=== PATIENT | male | born 1935 ===

== ENCOUNTER 2018-07-13 07:00 | Day surgery (SDC) | payer MEDICARE, OTHER ==
[2018-07-04 11:18] VITALS: BMI 27.8
[2018-07-13] MEDS ORDERED: Lactated Ringer's 1,000 ML IV ONE (09:30)
[2018-07-13] MEDS ORDERED: Midazolam 2 MG/2 ML VIAL ONE ×2 (09:31→09:56)
[2018-07-13] MEDS ORDERED: Lidocaine 1% Inj (20ml) IJ ONE (09:37)
[2018-07-13] MEDS ORDERED: MethylPREDNISolone Depo 40 mg/ml Inj IM ONE (09:37)
[2018-07-13] MEDS ORDERED: Bupivacaine HCl 0.25% PF (30 ml) Inj IJ ONE (09:37)
[2018-07-13] MEDS ORDERED: Propofol 10 mg/ml Inj (20 ML) ONE (09:56)
[2018-07-13] MEDS ORDERED: Iohexol 300 10 ML ONE (10:17)
[2018-07-13] MEDS ORDERED: MethylPREDNISolone Depo 40 mg/ml Inj ONE (10:17)
[2018-07-13] MEDS ORDERED: Lidocaine 1% Inj (20ml) ONE (10:18)
[2018-07-13] MEDS ORDERED: Bupivacaine 0.5% Inj(30mL) ONE (10:18)
[2018-07-13 11:52] VITALS: RESP 18; O2SAT 95
[2018-07-13 12:29] VITALS: BP 157/67; PULSE 59; TEMP 97.5
--- NOTE | 2018-07-13 13:13 | RAD ---
Date of service: 07/13/2018 PROCEDURE: Fluoroscopy up to 1 hr. HISTORY: PAIN MANAGEMENT COMPARISON: None TECHNIQUE: Standard protocol for this study/examination. FINDINGS: Total fluoroscopic time (continuous mode) utilized during the procedure 24.2 seconds. Total exam DLP: 9.05 (mGy). IMPRESSION: Less than 1 hr fluoroscopic assistance provided during performance of the procedure.
--- NOTE | 2018-07-13 22:57 | OP ---
PROCEDURE DATE: 07/13/2018 PREOPERATIVE DIAGNOSIS: Lumbar radiculopathy. POSTOPERATIVE DIAGNOSIS: Lumbar radiculopathy. PROCEDURE: Right L4-L5 and L5-S1 transforaminal epidural steroid injection. SURGEON: Fabio Sanchez MD TYPE OF ANESTHESIA: Monitored anesthesia care. ANESTHESIOLOGIST: Dr. Banerjee. COMPLICATIONS: None. SPECIMEN: None. DESCRIPTION OF PROCEDURE: As follows: After we had a discussion of the procedure with the patient including its risks, benefits, alternatives, outcome data, and possibility of no effect or increased pain, the patient consented to the procedure. He denied any recent infection or bleeding tendencies. Decision was then made to proceed to the OR. The patient had been instructed to start the Plavix for 7 days which he has done. This was cleared by his primary care physician. The patient was placed on the fluoroscopy table in a prone position with two pillows underneath his abdomen. The back was prepped and draped in the usual sterile fashion and sterile technique was adhered to during the entire procedure. The L4 and L5 vertebral levels were first identified in the anteroposterior view. Angulation towards the right approximately 20 degrees was used to maximize the visualization of the right L4 and L5 pedicles. The skin overlying the 6 o'clock position of both pedicles was infiltrated with 1% lidocaine using 25-gauge needle. Subsequently, a 22-gauge 3.5 inch spinal needle was then incrementally advanced under fluoroscopic guidance until tip of the needle walked into the intervertebral foramen. After satisfactory positioning of both needles, approximately 3 mL of 0.25% Marcaine and Depo-Medrol mixture were injected. The needle was then removed. Contrast was not used because the patient has allergies. At the end of the case, the patient's back was cleaned and dry bandages were applied. The patient was then transferred to recovery area in good condition without any signs of [employer] toxicity or any neurological deficits. He will be instructed to resume Plavix tomorrow. The patient will have a followup in office in approximately two to four weeks. Fabio Sanchez MD
== END 2018-07-13 12:25 | disposition home or self-care (01) ==
LOC: H.OPSURG 07:00
PROVIDERS: ATTEND Anesthesiology
DX: M54.16 Radiculopathy, lumbar region (principal); M19.90 Unspecified osteoarthritis, unspecified site; J45.909 Unspecified asthma, uncomplicated; I10 Essential (primary) hypertension
CPT/HCPCS: 64483; 64484; J1030; J2250; J2704; J3010; J7120

== ENCOUNTER 2018-09-23 11:11 | Inpatient (IN) | payer MEDICARE, OTHER ==
[2018-09-23 11:11] VITALS: BMI 27.8
[2018-09-23] MEDS ORDERED: Morphine 4 MG/ML VIAL IVP STA ×2 (11:53→18:34)
[2018-09-23] MEDS ORDERED: Morphine 4 MG/ML VIAL ONE ×2 (12:10→19:23)
[2018-09-23] MEDS ORDERED: DiphenhydrAMINE 50 mg/ml Inj IVP STA (12:23)
[2018-09-23] MEDS ORDERED: Iohexol 240 (50 ml) PO ONE (12:24)
--- NOTE | 2018-09-23 12:26 | RAD ---
Date of service: 09/23/2018 HISTORY: possible admission COMPARISON: Chest radiograph dated 04/25/2014. FINDINGS: LUNGS: No active pulmonary disease. PLEURA: No significant pleural effusion identified, no pneumothorax apparent. CARDIOVASCULAR: Aortic atherosclerotic calcifications. Cardiomediastinal silhouette stably enlarged. OSSEOUS STRUCTURES: Unchanged. VISUALIZED UPPER ABDOMEN: Normal. OTHER FINDINGS: None. IMPRESSION: No active disease.
[2018-09-23] MEDS ORDERED: DiphenhydrAMINE 50 mg/ml Inj ONE (12:32)
[2018-09-23] MEDS ORDERED: Iohexol 240 (50 ml) ONE (12:40)
[2018-09-23 12:53] LABS: BASO % 0.3 % (0.0-2.0); EOS # 0.1 K/uL (0.0-0.7); EOS % 0.5 % (0.0-4.0); HEMOGLOBIN 15.4 g/dL (12.0-18.0); LYMPH # 1.1 K/uL (1.0-4.3); LYMPH % 9.6 % (20.0-40.0); MEAN CORPUSCULAR HEMOGLOBIN 31.7 pg (27.0-31.0); MEAN CORPUSCULAR HGB CONC 32.1 g/dL (33.0-37.0); MEAN PLATELET VOLUME 10.8 fl (7.2-11.7); MONO # 1.2 K/uL (0.0-0.8); MONO % 10.3 % (0.0-10.0); NEUT # 9.1 K/uL (1.8-7.0); NEUT % 79.3 % (50.0-75.0); NRBC % 0.1 % (0.0-0.0); PLATELET COUNT 158 K/uL (130-400); RBC 4.85 Mil/uL (4.40-5.90); RED CELL DISTRIBUTION WIDTH 14.2 % (11.5-14.5); WHITE BLOOD COUNT 11.5 K/uL (4.8-10.8)
[2018-09-23 12:55] LABS: PROTHROMBIN TIME 11.7 Seconds (9.8-13.1)
[2018-09-23 12:57] LABS: PARTIAL THROMBOPLASTIN TIME 27.9 Seconds (25.6-37.1)
[2018-09-23 13:00] LABS: ALB/GLOB RATIO 1.3 (1.0-2.1); ALBUMIN 4.2 g/dL (3.5-5.0); ALT/SGPT 22 U/L (21-72); AST/SGOT 26 U/L (17-59); BLOOD UREA NITROGEN 15 mg/dl (9-20); CALCIUM 9.4 mg/dL (8.4-10.2); GFR NON-AFRICAN AMERICAN > 60; LIPASE 33 U/L (23-300)
[2018-09-23 14:41] LABS: BANDS 2 % (0-2); LYMPHOCYTE 5 % (20-50); MONOCYTE 8 % (0-10); NEUTROPHIL 85 % (42-75); TOTAL CELLS COUNTED 100
[2018-09-23 14:42] LABS: PLATELET ESTIMATE NORMAL (NORMAL)
--- NOTE | 2018-09-23 15:16 | ED PDOC ---
HPI: Abdomen Time Seen by Provider: 09/23/18 11:21 Chief Complaint (Nursing): Abdominal Pain Chief Complaint (Provider): abdominal pain History Per: Patient History/Exam Limitations: no limitations Onset/Duration Of Symptoms: Days (x1 week) Current Symptoms Are (Timing): Still Present Associated Symptoms: Diarrhea Additional Complaint(s): Chalo Long is a 82 year old male, with a past medical history of HTN, large prostate and CAD, who presents to the emergency department complaining of a worsening severe abdominal pain onset for x1 week associated with diarrhea. Patient has been taking Maalox and since then stool has become darker and noticed blood in stool. Patient states since last night abdominal pain became severe and worst across lower abdomen. He is unable to tolerate PO and has not had a normal bowel movement in several days. Patient states he's had x3 previous abdominal hernia repairs which were all performed at this hospital. He reports an allergy to Iodine x20 years ago stating he developed a rash. When discussed risk vs benefits of IV contrast, patient wants contrast so imaging doesn't have to be repeated. Patient told he will be given Benadryl for possible allergic reaction. He denies any fever, chills, nausea, vomiting or other medical complaints. PMD: Milo Dowell Past Medical History Reviewed: Historical Data, Nursing Documentation, Vital Signs Vital Signs: Last Vital Signs Temp 97.9 F 09/23/18 11:13 Pulse 99 H 09/23/18 11:13 Resp 18 09/23/18 11:13 BP 133/84 09/23/18 11:13 Pulse Ox 96 09/23/18 11:13 - Medical History PMH: Arthritis (arms,legs), Asthma, CAD, COPD, HTN Denies: Chronic Kidney Disease Other PMH: large prostate - Surgical History Surgical History: Hernia Repair - Family History Family History: States: Unknown Family Hx - Social History Current smoker - smoking cessation education provided: No Alcohol: None Drugs: Denies - Home Medications Home Medications: Ambulatory Orders Medication Instructions Recorded Albuterol Sulfate [Proair 90 mcg PO DAILY 03/28/17 Respiclick] Clopidogrel [Plavix] 75 mg PO DAILY 03/28/17 Desloratadine [Clarinex] 5 mg PO DAILY PRN 03/28/17 Fluticasone/Salmeterol 500/50 1 puff PO DAILY PRN 03/28/17 [Advair Diskus 500/50] Montelukast [Singulair] 10 mg PO PRN PRN 03/28/17 RX: Fluticasone Nasal [Flonase] 1 spray OD DAILY 03/28/17 RX: Tamsulosin HCl [Flomax] 0.4 mg PO DAILY 03/28/17 RX: Tramadol HCl [Ultram] 50 mg PO Q4 PRN 03/28/17 Irbesartan [Avapro] 75 mg PO DAILY 07/13/18 - Allergies Allergies/Adverse Reactions: Allergies Allergy/AdvReac Type Severity Reaction Status Date / Time aspirin Allergy Intermediate RASH Verified 09/23/18 11:48 iodine AdvReac RASH Verified 09/23/18 11:48 Review of Systems ROS Statement: Except As Marked, All Systems Reviewed And Found Negative Constitutional: Negative for: Fever, Chills Gastrointestinal: Positive for: Abdominal Pain, Diarrhea, Melena, Hematochezia. Negative for: Nausea, Vomiting Physical Exam - Reviewed Nursing Documentation Reviewed: Yes Vital Signs Reviewed: Yes - Physical Exam Appears: Positive for: No Acute Distress Head Exam: Positive for: ATRAUMATIC, NORMAL INSPECTION, NORMOCEPHALIC Skin: Positive for: Normal Color, Warm, Dry Eye Exam: Positive for: Normal appearance, EOMI, PERRL Neck: Positive for: Normal, Painless ROM Cardiovascular/Chest: Positive for: Regular Rate, Rhythm. Negative for: Murmur Respiratory: Positive for: Normal Breath Sounds. Negative for: Respiratory Distress Gastrointestinal/Abdominal: Positive for: Tenderness (diffuse), Distended, Guarding Back: Positive for: Normal Inspection. Negative for: L CVA Tenderness, R CVA Tenderness, Vertebral Tenderness Extremity: Positive for: Normal ROM (upper and lower extremities). Negative for: Deformity, Swelling Neurologic/Psych: Positive for: Alert, Oriented - Laboratory Results Result Diagrams: 09/24/18 06:32 09/24/18 06:32 Lab Results: PT 11.7 Seconds (9.8-13.1) 09/23/18 12:04 INR 1.0 09/23/18 12:04 APTT 27.9 Seconds (25.6-37.1) 09/23/18 12:04 Total Bilirubin 0.9 mg/dl (0.2-1.3) 09/23/18 12:04 AST 26 U/L (17-59) 09/23/18 12:04 ALT 22 U/L (21-72) 09/23/18 12:04 Alkaline Phosphatase 88 U/L (38-126) 09/23/18 12:04 Total Protein 7.6 G/DL (6.3-8.2) 09/23/18 12:04 Albumin 4.2 g/dL (3.5-5.0) 09/23/18 12:04 Globulin 3.3 gm/dL (2.2-3.9) 09/23/18 12:04 Albumin/Globulin Ratio 1.3 (1.0-2.1) 09/23/18 12:04 Lipase 33 U/L (23-300) 09/23/18 12:04 - ECG O2 Sat by Pulse Oximetry: 96 (RA) Pulse Ox Interpretation: Normal Medical Decision Making Medical Decision Making: Time: 11:21 Initial Impression: Work up for abdominal pain. Possible obstruction secondary to previous abdominal surgeries. Patient is on monitor with normal vitals Initial Plan: --Type and screen --Abd pelvis PO & IV Contrast [CT] --CMP --Lipase --CBC w/ differential --PTT --PT --Chest portable [RAD] --Benadryl 50 mg IVP --Morphine 2mg IVP --Omnipaque 240 50 ml PO --SOLU-medrol 125 mg IVP --Influenza A B --Occult blood, stool, ER --UA --Reevaluation 12:23 CXR FINDINGS: LUNGS: No active pulmonary disease. PLEURA: No significant pleural effusion identified, no pneumothorax apparent. CARDIOVASCULAR: Aortic atherosclerotic calcifications. Cardiomediastinal silhouette stably enlarged. OSSEOUS STRUCTURES: Unchanged. VISUALIZED UPPER ABDOMEN: Normal. OTHER FINDINGS: None. IMPRESSION: No active disease. 16:14 CT Abdomen and Pelvis FINDINGS: LOWER THORAX: Cardiomegaly. Coronary arterial and valvular calcifications. Bibasilar atelectasis/scarring. No focal consolidation or pleural effusion. LIVER: Unremarkable. No gross lesion or ductal dilatation. GALLBLADDER AND BILE DUCTS: Unremarkable. PANCREAS: Unremarkable. No gross lesion or ductal dilatation. SPLEEN: Unremarkable. ADRENALS: Unremarkable. No mass. KIDNEYS AND URETERS: Bilateral renal cysts, the largest on the right is in the lower pole measures 6.9 x 4.2 cm and the largest on the left is in the interpolar region and measures 4.1 by 3.7 cm. No hydronephrosis. No solid mass. VASCULATURE: Unremarkable. No aortic aneurysm. No aortic atherosclerotic calcification or mural plaque present. BOWEL: Wall thickening and pericolic inflammatory change involving the rectosigmoid no no obstruction. No gross mural thickening. APPENDIX: No findings to suggest acute appendicitis.. PERITONEUM: Small fat containing umbilical hernia. Bilateral left fat containing inguinal hernia. No free fluid. No free air. LYMPH NODES: Unremarkable. No enlarged lymph nodes. BLADDER: Unremarkable. REPRODUCTIVE: Marked prostatomegaly. BONES: Spinal degenerative changes. No acute fracture. OTHER FINDINGS: None. IMPRESSION: Infectious/inflammatory rectosigmoid colitis. Market prostatomegaly. Additional findings as above. Time: 1831 --Case discussed with Dr. Dowell, who agrees with treatment. As per Dr. Dowell's request, will consult Dr. Torres, urology, and Dr. Wisdom, GI, IV fluids and antibiotics. Scribe Attestation: Documented by Sergio Greer, acting as a scribe for Tia Darden MD Provider Scribe Attestation: All medical record entries made by the Scribe were at my direction and personally dictated by me. I have reviewed the chart and agree that the record accurately reflects my personal performance of the history, physical exam, medical decision making, and the department course for this patient. I have also personally directed, reviewed, and agree with the discharge instructions and disposition. Disposition - Clinical Impression Clinical Impression: Colitis, Nephrolithiasis - Patient ED Disposition Is Patient to be Admitted: Yes - Disposition Disposition Time: 18:32 Condition: FAIR
[2018-09-23] MEDS ORDERED: Iohexol 300 100 ML IJ ONE (15:24)
[2018-09-23] MEDS ORDERED: Sodium Chloride 0.9% 50 ML IV ONE (15:25)
[2018-09-23 15:44] LABS: SQUAMOUS EPITHIAL < 1 /hpf (0-5); URINE AMORPHOUS SEDIMENT OCC /ul (<OCC); URINE BACTERIA RARE (<OCC)
[2018-09-23 16:08] LABS: URINE BILIRUBIN SMALL (NEGATIVE); URINE BLOOD TRACE-INTACT (NEGATIVE); URINE CLARITY Clear (Clear); URINE COLOR YELLOW (YELLOW); URINE GLUCOSE (UA) NEGATIVE (NEGATIVE); URINE LEUKOCYTE ESTERASE NEGATIVE Leu/uL (Negative); URINE PROTEIN 100 mg/dL (NEGATIVE); URINE UROBILINOGEN 0.2 mg/dL (0.2-1.0)
--- NOTE | 2018-09-23 16:31 | CT ---
Date of service: 09/23/2018 PROCEDURE: CT Abdomen and Pelvis with contrast HISTORY: rule out obstruction COMPARISON: None. TECHNIQUE: Contrast dose: 70 mL Omnipaque 300 Radiation dose: Total exam DLP = 440.29 mGy-cm. This CT exam was performed using one or more of the following dose reduction techniques: Automated exposure control, adjustment of the mA and/or kV according to patient size, and/or use of iterative reconstruction technique. FINDINGS: LOWER THORAX: Cardiomegaly. Coronary arterial and valvular calcifications. Bibasilar atelectasis/scarring. No focal consolidation or pleural effusion. LIVER: Unremarkable. No gross lesion or ductal dilatation. GALLBLADDER AND BILE DUCTS: Unremarkable. PANCREAS: Unremarkable. No gross lesion or ductal dilatation. SPLEEN: Unremarkable. ADRENALS: Unremarkable. No mass. KIDNEYS AND URETERS: Bilateral renal cysts, the largest on the right is in the lower pole measures 6.9 x 4.2 cm and the largest on the left is in the interpolar region and measures 4.1 by 3.7 cm. No hydronephrosis. No solid mass. VASCULATURE: Unremarkable. No aortic aneurysm. No aortic atherosclerotic calcification or mural plaque present. BOWEL: Wall thickening and pericolic inflammatory change involving the rectosigmoid no no obstruction. No gross mural thickening. APPENDIX: No findings to suggest acute appendicitis.. PERITONEUM: Small fat containing umbilical hernia. Bilateral left fat containing inguinal hernia. No free fluid. No free air. LYMPH NODES: Unremarkable. No enlarged lymph nodes. BLADDER: Unremarkable. REPRODUCTIVE: Marked prostatomegaly. BONES: Spinal degenerative changes. No acute fracture. OTHER FINDINGS: None. IMPRESSION: Infectious/inflammatory rectosigmoid colitis. Market prostatomegaly. Additional findings as above.
[2018-09-23] MEDS ORDERED: Piperacillin/Tazobact 3.375 GM in Sodium Chloride 0.9% 100 ML IVPB STA (18:21)
[2018-09-23] MEDS ORDERED: Sodium Chloride 0.9% 1,000 ML IV STA (18:34)
[2018-09-23] MEDS ORDERED: Piperacillin/Tazobact 3.375 gm Inj IVPB ONE (19:23)
[2018-09-23] MEDS ORDERED: Enoxaparin 40 mg Syringe SC ONE (22:54)
[2018-09-23] MEDS: Dextrose 5%/0.9% NS 1,000 ML IV SCH (23:19)
[2018-09-23] MEDS ORDERED: DESLORATADINE 5 MG PO PRN (23:24)
[2018-09-23] MEDS: Ciprofloxacin 400mg/200ml D5W 400 MG/200 ML BAG IVPB SCH (23:28)
[2018-09-24] MEDS: metroNIDAZOLE 500mg/100ml NS 100 ML IVPB SCH ×3 (01:19→16:56)
[2018-09-24 06:50] LABS: HEMOGLOBIN 13.9 g/dL (12.0-18.0); MEAN CELL VOLUME 98.8 fl (80.0-94.0); MEAN CORPUSCULAR HEMOGLOBIN 32.6 pg (27.0-31.0); RBC 4.25 Mil/uL (4.40-5.90); RED CELL DISTRIBUTION WIDTH 14.2 % (11.5-14.5); WHITE BLOOD COUNT 10.8 K/uL (4.8-10.8)
[2018-09-24 06:57] LABS: ALB/GLOB RATIO 1.2 (1.0-2.1); ALBUMIN 3.5 g/dL (3.5-5.0); ALT/SGPT 28 U/L (21-72); AST/SGOT 20 U/L (17-59); BLOOD UREA NITROGEN 19 mg/dl (9-20); CALCIUM 8.6 mg/dL (8.4-10.2); GFR NON-AFRICAN AMERICAN > 60; HDL CHOLESTEROL 53 MG/DL (30-70)
[2018-09-24 06:58] LABS: LDL CHOLESTEROL 81 mg/dL (0-129)
[2018-09-24 07:04] LABS: T4 7.53 ug/dl (5.5-11.0)
[2018-09-24] MEDS: Budesonide 0.5 mg/2 ml Inhal Susp UD IH SCH ×2 (07:13→19:11)
[2018-09-24] MEDS: Albuterol-Ipratrop 3 mg / 0.5 (3 ml) UD INH SCH ×3 (07:13→19:11)
[2018-09-24] MEDS: Ciprofloxacin 400mg/200ml D5W 400 MG/200 ML BAG IVPB SCH ×2 (10:18→21:15)
--- NOTE | 2018-09-24 15:56 | CP.PCM.HP ---
History of Present Illness - History of Present Illness History of Present Illness: CC: Abdominal pain. 82 y/o M, PMHx: HTN, CAD, COPD, Lumbar Radiculopathy, Abdominal hernia repair x3, O/A, was brought to [facility], via EMS on 09/23/18, to be evaluated for abdominal pain that began 5 days [employer], Pt taking Maalox with no relief. Pt came c/o of abdominal pain to lower quadrants, gradually increased night [employer], described as intermittent pain, moderate to severe intensity 5-7:10, associated to loose-watery stool x the last 5 days but now with Red tinted color. Worsening symptoms: Unable to tolerate PO, no regular BS for several days. Aggravated factor: ADL's, position change. Pt denied: Fever, chills, n/v, urinary symptoms, CP, palpitations, syncope, SOB, cough, sick contact, recent travel out of [facility]. Abd/Pelvis CT: Infectious/inflammatory rectosigmoid colitis. marked Prostatomegaly. CXR: No active disease. 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) - Integumentary Integumentary: Other (negative) - Neurological Neurological: Other (negative) - Psychiatric Psychiatric: Other (negative) - Endocrine Endocrine: Other (negative) - Hematologic/Lymphatic Hematologic: Other (negative) Past Patient History - Past Medical History & Family History Past Medical History?: Yes Pertinent Family History: Unknown - Past Social History Smoking Status: Never Smoked Alcohol: None Drugs: Denies Home Situation {Lives}: With Family - CARDIAC Hx Cardiac Disorders: Yes Hx Hypertension: Yes - PULMONARY Hx Respiratory Disorders: Yes Hx Asthma: Yes Hx Chronic Obstructive Pulmonary Disease (COPD): Yes - NEUROLOGICAL Hx Neurological Disorder: Yes (Lumbar radiculopathy) Hx Transient Ischemic Attacks (TIA): Yes - HEENT Hx HEENT Problems: No - RENAL Hx Chronic Kidney Disease: No - ENDOCRINE/METABOLIC Hx Endocrine Disorders: No - HEMATOLOGICAL/ONCOLOGICAL Hx Blood Disorders: No Hx AIDS: No Hx Blood Transfusions: No Hx Human Immunodeficiency Virus (HIV): No - INTEGUMENTARY Hx Dermatological Problems: No - MUSCULOSKELETAL/RHEUMATOLOGICAL Hx Musculoskeletal Disorders: Yes Hx Arthritis: Yes (arms,legs) Hx Back Pain: Yes Hx Degenerative Joint Disease: Yes (Scoliosis Lumbar-Spine) Hx Herniated Disk: Yes Hx Spinal Stenosis: Yes - GASTROINTESTINAL Hx Gastrointestinal Disorders: No - GENITOURINARY/GYNECOLOGICAL Hx Genitourinary Disorders: Yes Hx Prostate Problems: Yes - PSYCHIATRIC Hx Psychophysiologic Disorder: No Hx Emotional Abuse: No Hx Physical Abuse: No Hx Substance Use: No - SURGICAL HISTORY Hx Surgeries: Yes Hx Cardiac Catheterization: No Hx Herniorrhaphy: Yes (bilateral) - ANESTHESIA Hx Anesthesia: Yes Hx Anesthesia Reactions: No Hx Malignant Hyperthermia: No Meds Allergies/Adverse Reactions: Allergies Allergy/AdvReac Type Severity Reaction Status Date / Time aspirin Allergy Intermediate RASH Verified 09/23/18 11:48 iodine AdvReac RASH Verified 09/23/18 11:48 Physical Exam - Constitutional Appears: No Acute Distress - Head Exam Head Exam: NORMAL INSPECTION - Eye Exam Eye Exam: PERRL - ENT Exam ENT Exam: Normal Exam - Neck Exam Neck exam: Positive for: Normal Inspection - Respiratory Exam Respiratory Exam: NORMAL BREATHING PATTERN - Cardiovascular Exam Cardiovascular Exam: REGULAR RHYTHM - GI/Abdominal Exam GI & Abdominal Exam: Distended, Guarding, Hypoactive Bowel Sounds, Tenderness (diffused) - Extremities Exam Extremities exam: Positive for: normal inspection - Back Exam Back exam: NORMAL INSPECTION - Neurological Exam Neurological exam: Alert, Oriented x3 - Psychiatric Exam Psychiatric exam: Normal Mood - Skin Skin Exam: Normal Color, Warm Results - Vital Signs Recent Vital Signs: Last Vital Signs Temp 98.1 F 09/24/18 09:00 Pulse 66 09/24/18 09:00 Resp 18 09/24/18 09:00 BP 124/73 09/24/18 09:00 Pulse Ox 96 09/24/18 14:43 reviewed Jalyn - Labs Result Diagrams: 09/24/18 06:32 09/24/18 06:32 Labs: Laboratory Results - last 24 hr 09/23/18 09/23/18 09/24/18 08:47 15:10 06:32 WBC 10.8 RBC 4.25 L Hgb 13.9 Hct 42.0 MCV 98.8 H MCH 32.6 H MCHC 33.0 RDW 14.2 Plt Count 152 Sodium Potassium Chloride Carbon Dioxide Anion Gap BUN Creatinine Est GFR ( Amer) Est GFR (Non-Af Amer) Random Glucose Calcium Total Bilirubin AST ALT Alkaline Phosphatase Total Protein Albumin Globulin Albumin/Globulin Ratio Triglycerides Cholesterol LDL Cholesterol Direct HDL Cholesterol Thyroxine (T4) TSH 3rd Generation Urine Color Yellow Urine Clarity Clear Urine pH 7.0 Ur Specific [place] 1.020 Urine Protein 100 Urine Glucose (UA) Negative Urine Ketones 15 Urine Blood Trace-intact Urine Nitrate Negative Urine Bilirubin Small Urine Urobilinogen 0.2 Ur Leukocyte Esterase Negative Urine RBC (Auto) 4 H Urine Microscopic WBC 4 Ur Squamous Epith Cells < 1 Amorphous Sediment Occ H Urine Bacteria Rare Stool Occult Blood Positive H 09/24/18 06:32 WBC RBC Hgb Hct MCV MCH MCHC RDW Plt Count Sodium 137 Potassium 4.5 Chloride 98 Carbon Dioxide 29 Anion Gap 15 BUN 19 Creatinine 0.8 Est GFR ( Amer) > 60 Est GFR (Non-Af Amer) > 60 Random Glucose 134 H Calcium 8.6 Total Bilirubin 0.6 AST 20 ALT 28 Alkaline Phosphatase 66 Total Protein 6.4 Albumin 3.5 Globulin 3.0 Albumin/Globulin Ratio 1.2 Triglycerides 62 Cholesterol 151 LDL Cholesterol Direct 81 HDL Cholesterol 53 Thyroxine (T4) 7.53 TSH 3rd Generation 0.94 Urine Color Urine Clarity Urine pH Ur Specific [place] Urine Protein Urine Glucose (UA) Urine Ketones Urine Blood Urine Nitrate Urine Bilirubin Urine Urobilinogen Ur Leukocyte Esterase Urine RBC (Auto) Urine Microscopic WBC Ur Squamous Epith Cells Amorphous Sediment Urine Bacteria Stool Occult Blood reviewed J.P. - Imaging and Cardiology CT scan - abdomen Status: Report reviewed by me (J.P.) CT scan - pelvis Status: Report reviewed by me (JLibertyP.) Chest x-ray Status: Report reviewed by me (JLibertyP.) Assessment & Plan (1) Abdominal pain Status: Acute Priority: High (2) Colitis Status: Acute Priority: High (3) HTN (hypertension) Status: Chronic Priority: Medium (4) BPH (benign prostatic hyperplasia) Status: Chronic Priority: Medium - Assessment and Plan (Free Text) Plan: F/U EKG, Blood C-S, U C-S, Continue Flagyl, Cipro, Duoneb, Singulair, Flomax and rest of tx. Urology anf GI consult. - Date & Time Date: 09/24/18 Time: 13:30
[2018-09-24] MEDS: Dextrose 5%/0.9% NS 1,000 ML IV SCH ×2 (22:00→23:30)
--- NOTE | 2018-09-24 22:31 | CON ---
DATE: 09/24/2018 REASON FOR CONSULTATION: Diarrhea and colitis. HISTORY OF PRESENT ILLNESS: This is a pleasant 82-year-old male with history of hypertension, benign prostatic hypertrophy, CAD, who comes in for diarrhea, abdominal pain for the past week or so. The patient is actually doing better, has some nausea and vomiting which has improved, diarrhea has improved. No blood in the stool. , tolerating diet, lying in bed comfortably, in no apparent distress. PAST MEDICAL HISTORY: As above. PAST SURGICAL HISTORY: As above. MEDICATIONS: Reviewed. REVIEW OF SYSTEMS: All other systems have been reviewed and negative apart from the HPI. PHYSICAL EXAMINATION: VITAL SIGNS: Here in the hospital grossly unremarkable. GENERAL: This is a pleasant elderly appearing male, lying in bed comfortably. HEENT: Head: Normocephalic, atraumatic. Eyes: Pupils are equally reactive to light bilaterally. No conjunctival pallor or icterus. NECK: Supple. Normal range of motion. No lymphadenopathy appreciated. LUNGS: Coarse breath sounds bilaterally. HEART: S1, S2, regular rhythm. ABDOMEN: Soft, nontender. Bowel sounds present. No rebound. No guarding. RECTAL: Deferred. EXTREMITIES: Pulses present bilaterally. SKIN: Warm, dry, intact. NEUROLOGIC: A and O x3. LABORATORY DATA: All labs and radiology has been reviewed. WBC is 11.5 down to 10.8, hemoglobin is 13.9 and stable. CAT scan of abdomen was done without IV contrast demonstrates rectosigmoid colitis. ASSESSMENT AND PLAN: This is an 82-year-old male with colitis, . Advance diet as tolerated. Colostomy in 2 to 4 weeks. Thank you for the consult. Zacarias Wisdom MD/ PhD cc: Milo Dowell MD
[2018-09-25] MEDS: Dextrose 5%/0.9% NS 1,000 ML IV SCH ×2 (00:26→20:00)
[2018-09-25] MEDS: metroNIDAZOLE 500mg/100ml NS 100 ML IVPB SCH ×3 (00:31→16:57)
[2018-09-25 07:11] LABS: HEMOGLOBIN 13.8 g/dL (12.0-18.0); MEAN CELL VOLUME 97.5 fl (80.0-94.0); MEAN CORPUSCULAR HEMOGLOBIN 32.9 pg (27.0-31.0); MEAN CORPUSCULAR HGB CONC 33.8 g/dL (33.0-37.0); RBC 4.19 Mil/uL (4.40-5.90); RED CELL DISTRIBUTION WIDTH 14.1 % (11.5-14.5); WHITE BLOOD COUNT 9.2 K/uL (4.8-10.8)
[2018-09-25 07:13] LABS: ALB/GLOB RATIO 1.2 (1.0-2.1); ALBUMIN 3.5 g/dL (3.5-5.0); ALT/SGPT 20 U/L (21-72); AST/SGOT 23 U/L (17-59); BLOOD UREA NITROGEN 16 mg/dl (9-20); CALCIUM 8.7 mg/dL (8.4-10.2); GFR NON-AFRICAN AMERICAN > 60
[2018-09-25] MEDS: Budesonide 0.5 mg/2 ml Inhal Susp UD IH SCH ×2 (07:33→19:00)
[2018-09-25] MEDS: Albuterol-Ipratrop 3 mg / 0.5 (3 ml) UD INH SCH ×3 (07:33→19:00)
[2018-09-25] MEDS: Ciprofloxacin 400mg/200ml D5W 400 MG/200 ML BAG IVPB SCH ×2 (08:46→20:14)
--- NOTE | 2018-09-25 10:51 | CP.PCM.PN ---
Subjective - Date & Time of Evaluation Date of Evaluation: 09/25/18 Time of Evaluation: 10:48 - Subjective Subjective: 82 year old male admitted with abdominal pain incedental ct finding shows multiple cysts which appear benign. A Multicystic Kidney disease. P no therapy at this time, uro FU within 6 mos.Jaquan Robles Objective - Vital Signs/Intake and Output Vital Signs (last 24 hours): Temp Pulse Resp BP Pulse Ox 98.3 F 69 18 156/82 H 96 09/25/18 08:17 09/25/18 08:17 09/25/18 08:17 09/25/18 08:17 09/25/18 08:17 Intake and Output: 09/25/18 09/25/18 06:59 18:59 Intake Total 1200 Output Total 325 Balance 875 - Medications Medications: Current Medications Albuterol/Ipratropium (Duoneb 3 Mg/0.5 Mg (3 Ml) Ud) 3 ml INH RTID [place] Last Admin: 09/25/18 07:33 Dose: 3 ml Budesonide (Pulmicort Respules) 0.5 mg IH RBID [place] Last Admin: 09/25/18 07:33 Dose: 0.5 mg Fluticasone Propionate (Flonase) 1 spr ROZ DAILY [place] Last Admin: 09/25/18 08:45 Dose: 1 spr Metronidazole (Flagyl 500mg/100ml Ns) 100 mls @ 100 mls/hr IVPB Q8 [place]; Protocol Last Admin: 09/25/18 08:45 Dose: 100 mls/hr Ciprofloxacin (Cipro 400mg/200ml Dsw) 400 mg in 200 mls @ 200 mls/hr IVPB Q12 [place]; Protocol Last Admin: 09/25/18 08:46 Dose: 200 mls/hr Dextrose/Sodium Chloride (Dextrose 5%/0.9% Ns 1000 Ml) 1,000 mls @ 90 mls/hr IV .[id number] [place] Last Admin: 09/24/18 23:30 Dose: 90 mls/hr Vancomycin HCl 1 gm/ Sodium (Chloride) 250 mls @ 166.667 mls/hr IVPB Q12 [place]; Protocol Loratadine (Claritin) 10 mg PO DAILY PRN PRN Reason: ALLERGY SYMPTOMS Montelukast Sodium (Singulair) 10 mg PO DAILY PRN PRN Reason: ALLERGY SYMPTOMS Tamsulosin HCl (Flomax) 0.4 mg PO DAILY [place] Last Admin: 09/25/18 08:45 Dose: 0.4 mg Tramadol HCl (Ultram) 50 mg PO Q6 PRN PRN Reason: Pain, moderate (4-7) - Labs Labs: 09/25/18 06:20 09/25/18 06:20 PT 11.7 Seconds (9.8-13.1) 09/23/18 12:04 INR 1.0 09/23/18 12:04 APTT 27.9 Seconds (25.6-37.1) 09/23/18 12:04
[2018-09-25 14:54] LABS: TOTAL PSA 8.1 ng/mL (< or = 4.0)
--- NOTE | 2018-09-25 15:38 | CP.PCM.PN ---
Subjective - Date & Time of Evaluation Date of Evaluation: 09/25/18 Time of Evaluation: 12:20 - Subjective Subjective: F/U Abdominal pain. No abdominal pain. Objective - Vital Signs/Intake and Output Vital Signs (last 24 hours): Temp Pulse Resp BP Pulse Ox 98.3 F 69 18 156/82 H 96 09/25/18 08:17 09/25/18 08:17 09/25/18 08:17 09/25/18 08:17 09/25/18 08:17 Intake and Output: 09/25/18 09/25/18 06:59 18:59 Intake Total 1200 Output Total 325 Balance 875 - Medications Medications: Current Medications Albuterol/Ipratropium (Duoneb 3 Mg/0.5 Mg (3 Ml) Ud) 3 ml INH RTID [facility] Last Admin: 09/25/18 13:55 Dose: 3 ml Budesonide (Pulmicort Respules) 0.5 mg IH RBID [facility] Last Admin: 09/25/18 07:33 Dose: 0.5 mg Fluticasone Propionate (Flonase) 1 spr ROZ DAILY [facility] Last Admin: 09/25/18 08:45 Dose: 1 spr Metronidazole (Flagyl 500mg/100ml Ns) 100 mls @ 100 mls/hr IVPB Q8 [facility]; P rotocol Last Admin: 09/25/18 08:45 Dose: 100 mls/hr Ciprofloxacin (Cipro 400mg/200ml Dsw) 400 mg in 200 mls @ 200 mls/hr IVPB Q12 [facility]; Protocol Last Admin: 09/25/18 08:46 Dose: 200 mls/hr Dextrose/Sodium Chloride (Dextrose 5%/0.9% Ns 1000 Ml) 1,000 mls @ 90 mls/hr IV .Q11H7M [facility] Last Admin: 09/24/18 23:30 Dose: 90 mls/hr Vancomycin HCl 1 gm/ Sodium (Chloride) 250 mls @ 166.667 mls/hr IVPB Q12 [facility]; Protocol Last Admin: 09/25/18 12:11 Dose: 166.667 mls/hr Loratadine (Claritin) 10 mg PO DAILY PRN PRN Reason: ALLERGY SYMPTOMS Montelukast Sodium (Singulair) 10 mg PO DAILY PRN PRN Reason: ALLERGY SYMPTOMS Tamsulosin HCl (Flomax) 0.4 mg PO DAILY [facility] Last Admin: 09/25/18 08:45 Dose: 0.4 mg Tramadol HCl (Ultram) 50 mg PO Q6 PRN PRN Reason: Pain, moderate (4-7) - Labs Labs: 09/25/18 06:20 09/25/18 06:20 PT 11.7 Seconds (9.8-13.1) 09/23/18 12:04 INR 1.0 09/23/18 12:04 APTT 27.9 Seconds (25.6-37.1) 09/23/18 12:04 - Constitutional Appears: No Acute Distress - Head Exam Head Exam: NORMAL INSPECTION - Eye Exam Eye Exam: PERRL - ENT Exam ENT Exam: Normal Exam - Neck Exam Neck Exam: Normal Inspection - Respiratory Exam Respiratory Exam: NORMAL BREATHING PATTERN - Cardiovascular Exam Cardiovascular Exam: REGULAR RHYTHM - GI/Abdominal Exam GI & Abdominal Exam: Soft, Normal Bowel Sounds. absent: Distended, Guarding, Tenderness, Rebound - Extremities Exam Extremities Exam: Normal Inspection - Back Exam Back Exam: NORMAL INSPECTION - Neurological Exam Neurological Exam: Alert, Oriented x3 Additional comments: No motor/sensory deficit - Psychiatric Exam Psychiatric exam: Normal Mood - Skin Skin Exam: Warm Assessment and Plan (1) Abdominal pain Status: Acute (2) Colitis Status: Acute (3) HTN (hypertension) Status: Chronic (4) BPH (benign prostatic hyperplasia) Status: Chronic - Assessment and Plan (Free Text) Plan: Full liquid diet, continue Cipro, Flagyl, Vanco. U C-S: Gran Positive Cocci, f/u [facility] to have Colonoscopy as out PT in 6 weeks.
--- NOTE | 2018-09-25 20:04 | CON ---
DATE: 09/25/2018 CHIEF COMPLAINT: Renal cyst. HISTORY OF PRESENT ILLNESS: The patient was admitted with lower abdominal pain and found to have evidence of diverticulitis. During this admission, he had a CAT scan of the abdomen and pelvis and incidental findings of bilateral renal cysts. The admitting doctor called the consultation because of the large size of the cysts especially on the right and want the urological opinion in the patient given no history of being aware of these cysts in the past, he gives no history of any evaluation and treatment. He has no hematuria, minimal urinary symptoms. No history of instrumentation. REVIEW OF SYSTEMS: RESPIRATORY: The patient has no shortness of breath. There is no wheezing, no difficulty in breathing. CARDIAC: The patient has no chest pain or palpitations. GASTROINTESTINAL: The patient has history of change in bowel habits, lower abdominal pain. GENITOURINARY: The patient has no history of hematuria. He has no history of urinary incontinence. He does have 2 times nocturia, some minor slowing of the stream, and some daytime frequency. Orthopedic history is negative. SOCIAL AND FAMILY HISTORY: The patient lives in [place] with his . He is retired. PHYSICAL EXAMINATION: VITAL SIGNS: The patient's vital signs are within normal limits. HEAD, EARS, EYES, NOSE, AND THROAT: Within normal limits. NECK: Supple. There is no bruits, nodes, or mass. CHEST: Clear bilaterally. There are no rales or rhonchi. HEART: Normal sinus rhythm. There is no murmur. ABDOMEN: Soft. There is slight suprapubic tenderness. There is no CVA tenderness, guarding, or rebound. EXTREMITIES: Normal. NEUROLOGIC: Normal. SKIN: Normal. ASSESSMENT: Bilateral renal cysts (multicystic kidney disease). PLAN: I suggest the following: I suggest that there is no need for therapy on this admission. The patient should follow up with the urologist and have routine followup of these cysts to determine if there are any changes in their character or they cause any hydronephrosis. Zacarias Robles MD
[2018-09-26] MEDS: Budesonide 0.5 mg/2 ml Inhal Susp UD IH SCH ×2 (07:41→19:44)
[2018-09-26] MEDS: Albuterol-Ipratrop 3 mg / 0.5 (3 ml) UD INH SCH ×3 (07:41→19:44)
[2018-09-26] MEDS: metroNIDAZOLE 500mg/100ml NS 100 ML IVPB SCH ×2 (08:17→16:27)
[2018-09-26] MEDS: Ciprofloxacin 400mg/200ml D5W 400 MG/200 ML BAG IVPB SCH ×2 (08:17→20:39)
[2018-09-26] MEDS: Lactobacillus Acidophilus 500 MU Cap PO SCH ×2 (15:03→17:56)
--- NOTE | 2018-09-26 16:13 | CP.PCM.PN ---
Subjective - Date & Time of Evaluation Date of Evaluation: 09/26/18 Time of Evaluation: 16:11 - Subjective Subjective: no overnight events Objective - Vital Signs/Intake and Output Vital Signs (last 24 hours): Temp Pulse Resp BP Pulse Ox 98.3 F 71 18 148/80 98 09/26/18 08:33 09/26/18 08:33 09/26/18 08:33 09/26/18 08:33 09/26/18 08:33 Intake and Output: 09/26/18 09/26/18 06:59 18:59 Intake Total 300 Balance 300 - Medications Medications: Current Medications Albuterol/Ipratropium (Duoneb 3 Mg/0.5 Mg (3 Ml) Ud) 3 ml INH RTID [facility] Last Admin: 09/26/18 13:59 Dose: 3 ml Budesonide (Pulmicort Respules) 0.5 mg IH RBID [facility] Last Admin: 09/26/18 07:41 Dose: 0.5 mg Fluticasone Propionate (Flonase) 1 spr ROZ DAILY [facility] Last Admin: 09/26/18 08:23 Dose: 1 spr Metronidazole (Flagyl 500mg/100ml Ns) 100 mls @ 100 mls/hr IVPB Q8 [facility]; Protocol Last Admin: 09/26/18 08:17 Dose: 100 mls/hr Ciprofloxacin (Cipro 400mg/200ml Dsw) 400 mg in 200 mls @ 200 mls/hr IVPB Q12 [facility]; Protocol Last Admin: 09/26/18 08:17 Dose: 200 mls/hr Dextrose/Sodium Chloride (Dextrose 5%/0.9% Ns 1000 Ml) 1,000 mls @ 90 mls/hr IV .Q11H7M [facility] Last Admin: 09/25/18 20:00 Dose: Not Given Lactobacillus Acidophilus (Bacid Acidophilus) 1 cap PO BID [facility] Last Admin: 09/26/18 15:03 Dose: 1 cap Loratadine (Claritin) 10 mg PO DAILY PRN PRN Reason: ALLERGY SYMPTOMS Montelukast Sodium (Singulair) 10 mg PO HS [facility] Last Admin: 09/25/18 21:36 Dose: 10 mg Tamsulosin HCl (Flomax) 0.4 mg PO DAILY [facility] Last Admin: 09/26/18 08:23 Dose: 0.4 mg Tramadol HCl (Ultram) 50 mg PO Q6 PRN PRN Reason: Pain, moderate (4-7) - Labs Labs: 09/25/18 06:20 09/25/18 06:20 PT 11.7 Seconds (9.8-13.1) 09/23/18 12:04 INR 1.0 09/23/18 12:04 APTT 27.9 Seconds (25.6-37.1) 09/23/18 12:04 - Head Exam Head Exam: NORMOCEPHALIC - Neck Exam Neck Exam: Normal Inspection - Respiratory Exam Respiratory Exam: Clear to Ausculation Bilateral, NORMAL BREATHING PATTERN - Cardiovascular Exam Cardiovascular Exam: REGULAR RHYTHM - GI/Abdominal Exam GI & Abdominal Exam: Soft, Normal Bowel Sounds Assessment and Plan - Assessment and Plan (Free Text) Assessment: 82 yo male with colitis doing well dc planning
[2018-09-26 16:15] VITALS: RESP 20
[2018-09-26] MEDS: Dextrose 5%/0.9% NS 1,000 ML IV SCH ×2 (17:56→20:39)
--- NOTE | 2018-09-26 18:06 | CP.PCM.PN ---
Subjective - Date & Time of Evaluation Date of Evaluation: 09/26/18 Time of Evaluation: 12:40 - Subjective Subjective: F/U Abdominal pain. Diarrhea, no abdominal pain. Objective - Vital Signs/Intake and Output Vital Signs (last 24 hours): Temp Pulse Resp BP Pulse Ox 99.5 F 68 20 136/74 94 L 09/26/18 17:00 09/26/18 17:00 09/26/18 17:00 09/26/18 17:00 09/26/18 17:00 Intake and Output: 09/26/18 09/26/18 06:59 18:59 Intake Total 300 Balance 300 - Medications Medications: Current Medications Albuterol/Ipratropium (Duoneb 3 Mg/0.5 Mg (3 Ml) Ud) 3 ml INH RTID [facility] Last Admin: 09/26/18 13:59 Dose: 3 ml Budesonide (Pulmicort Respules) 0.5 mg IH RBID [facility] Last Admin: 09/26/18 07:41 Dose: 0.5 mg Fluticasone Propionate (Flonase) 1 spr ROZ DAILY [facility] Last Admin: 09/26/18 08:23 Dose: 1 spr Metronidazole (Flagyl 500mg/100ml Ns) 100 mls @ 100 mls/hr IVPB Q8 [facility]; Protocol Last Admin: 09/26/18 16:27 Dose: 100 mls/hr Ciprofloxacin (Cipro 400mg/200ml Dsw) 400 mg in 200 mls @ 200 mls/hr IVPB Q12 [facility]; Protocol Last Admin: 09/26/18 08:17 Dose: 200 mls/hr Dextrose/Sodium Chloride (Dextrose 5%/0.9% Ns 1000 Ml) 1,000 mls @ 90 mls/hr IV .Q11H7M [facility] Last Admin: 09/26/18 17:56 Dose: Not Given Lactobacillus Acidophilus (Bacid Acidophilus) 1 cap PO BID [facility] Last Admin: 09/26/18 17:56 Dose: Not Given Loratadine (Claritin) 10 mg PO DAILY PRN PRN Reason: ALLERGY SYMPTOMS Montelukast Sodium (Singulair) 10 mg PO HS [facility] Last Admin: 09/25/18 21:36 Dose: 10 mg Tamsulosin HCl (Flomax) 0.4 mg PO DAILY [facility] Last Admin: 01/23/19 08:23 Dose: 0.4 mg Tramadol HCl (Ultram) 50 mg PO Q6 PRN PRN Reason: Pain, moderate (4-7) - Labs Labs: 09/25/18 06:20 09/25/18 06:20 PT 11.7 Seconds (9.8-13.1) 09/23/18 12:04 INR 1.0 09/23/18 12:04 APTT 27.9 Seconds (25.6-37.1) 09/23/18 12:04 - Constitutional Appears: No Acute Distress - Head Exam Head Exam: NORMAL INSPECTION - Eye Exam Eye Exam: PERRL - ENT Exam ENT Exam: Normal Exam - Neck Exam Neck Exam: Normal Inspection - Respiratory Exam Respiratory Exam: NORMAL BREATHING PATTERN - Cardiovascular Exam Cardiovascular Exam: REGULAR RHYTHM - GI/Abdominal Exam GI & Abdominal Exam: Soft, Normal Bowel Sounds. absent: Distended, Tenderness - Extremities Exam Extremities Exam: Normal Inspection - Back Exam Back Exam: NORMAL INSPECTION - Neurological Exam Neurological Exam: Alert, Oriented x3 Additional comments: No focal motor/sensory deficit - Psychiatric Exam Psychiatric exam: Normal Mood - Skin Skin Exam: Normal Color, Warm Assessment and Plan (1) Abdominal pain Status: Acute (2) Colitis Status: Acute (3) HTN (hypertension) Status: Chronic (4) BPH (benign prostatic hyperplasia) Status: Chronic - Assessment and Plan (Free Text) Plan: Continue Cipro, Flagyl. Stool C Diff, regular diet
[2018-09-27] MEDS: metroNIDAZOLE 500mg/100ml NS 100 ML IVPB SCH ×2 (00:41→08:19)
[2018-09-27] MEDS: Dextrose 5%/0.9% NS 1,000 ML IV SCH (04:46)
[2018-09-27] MEDS: Albuterol-Ipratrop 3 mg / 0.5 (3 ml) UD INH SCH ×2 (07:39→13:30)
[2018-09-27] MEDS: Budesonide 0.5 mg/2 ml Inhal Susp UD IH SCH (07:39)
[2018-09-27] MEDS: Lactobacillus Acidophilus 500 MU Cap PO SCH (08:17)
[2018-09-27] MEDS: Ciprofloxacin 400mg/200ml D5W 400 MG/200 ML BAG IVPB SCH (08:19)
[2018-09-27 08:27] VITALS: BP 121/78; PULSE 85; TEMP 97.8; O2SAT 94
--- NOTE | 2018-09-27 19:19 | CP.PCM.DIS ---
Provider - Provider Date of Admission: 09/23/18 18:28 Attending physician: Milo Dowell MD Consults: 09/23/18 19:31 Gastroenterology Consult Stat Comment: Consulting Provider: Zacarias Wisdom Consulting Physician: Zacarias Wisdom Reason for Consult: recto-collitis 09/24/18 08:00 Urology Consult Routine Comment: Consulting Provider: Zacarias Robles Jr. Consulting Physician: Zacarias Robles Jr. Reason for Consult: Bilateral renal cyst Time Spent in preparation of Discharge (in minutes): 35 Diagnosis - Discharge Diagnosis (1) Abdominal pain Status: Acute Priority: High (2) Colitis Status: Acute Priority: High (3) HTN (hypertension) Status: Chronic Priority: Medium (4) BPH (benign prostatic hyperplasia) Status: Chronic Priority: Medium Hospital Course - Lab Results Lab Results: Micro Results 09/23/18 19:22 Blood-Venous Blood Culture - Preliminary NO GROWTH AFTER 3 DAYS 09/23/18 18:40 Urine Random Urine Culture - Final Enterococcus Faecalis Most Recent Lab Values WBC 9.2 K/uL (4.8-10.8) 09/25/18 06:20 RBC 4.19 Mil/uL (4.40-5.90) L 09/25/18 06:20 Hgb 13.8 g/dL (12.0-18.0) 09/25/18 06:20 Hct 40.8 % (35.0-51.0) 09/25/18 06:20 MCV 97.5 fl (80.0-94.0) H 09/25/18 06:20 MCH 32.9 pg (27.0-31.0) H 09/25/18 06:20 MCHC 33.8 g/dL (33.0-37.0) 09/25/18 06:20 RDW 14.1 % (11.5-14.5) 09/25/18 06:20 Plt Count 126 K/uL (130-400) L D 09/25/18 06:20 MPV 10.8 fl (7.2-11.7) 09/23/18 12:04 Neut % (Auto) 79.3 % (50.0-75.0) H 09/23/18 12:04 Lymph % (Auto) 9.6 % (20.0-40.0) L 09/23/18 12:04 [place] % (Auto) 10.3 % (0.0-10.0) H 09/23/18 12:04 Eos % (Auto) 0.5 % (0.0-4.0) 09/23/18 12:04 Baso % (Auto) 0.3 % (0.0-2.0) 09/23/18 12:04 Neut # (Auto) 9.1 K/uL (1.8-7.0) H 09/23/18 12:04 Lymph # (Auto) 1.1 K/uL (1.0-4.3) 09/23/18 12:04 [place] # (Auto) 1.2 K/uL (0.0-0.8) H 09/23/18 12:04 Eos # (Auto) 0.1 K/uL (0.0-0.7) 09/23/18 12:04 Baso # (Auto) 0.0 K/uL (0.0-0.2) 09/23/18 12:04 Neutrophils % (Manual) 85 % (42-75) H 09/23/18 12:04 Band Neutrophils % 2 % (0-2) 09/23/18 12:04 Lymphocytes % (Manual) 5 % (20-50) L 09/23/18 12:04 Monocytes % (Manual) 8 % (0-10) 09/23/18 12:04 Platelet Estimate Normal (NORMAL) 09/23/18 12:04 RBC Morphology Normal (NORMAL) 09/23/18 12:04 PT 11.7 Seconds (9.8-13.1) 09/23/18 12:04 INR 1.0 09/23/18 12:04 APTT 27.9 Seconds (25.6-37.1) 09/23/18 12:04 Sodium 139 mmol/l (132-148) 09/25/18 06:20 Potassium 4.1 MMOL/L (3.6-5.0) 09/25/18 06:20 Chloride 107 mmol/L (98-107) 09/25/18 06:20 Carbon Dioxide 25 mmol/L (22-30) 09/25/18 06:20 Anion Gap 11 (10-20) 09/25/18 06:20 BUN 16 mg/dl (9-20) 09/25/18 06:20 Creatinine 0.8 mg/dl (0.8-1.5) 09/25/18 06:20 Est GFR ( Amer) > 60 09/25/18 06:20 Est GFR (Non-Af Amer) > 60 09/25/18 06:20 Random Glucose 99 mg/dL (75-110) 09/25/18 06:20 Calcium 8.7 mg/dL (8.4-10.2) 09/25/18 06:20 Total Bilirubin 0.5 mg/dl (0.2-1.3) 09/25/18 06:20 AST 23 U/L (17-59) 09/25/18 06:20 ALT 20 U/L (21-72) L D 09/25/18 06:20 Alkaline Phosphatase 70 U/L (38-126) 09/25/18 06:20 Total Protein 6.6 G/DL (6.3-8.2) 09/25/18 06:20 Albumin 3.5 g/dL (3.5-5.0) 09/25/18 06:20 Globulin 3.0 gm/dL (2.2-3.9) 09/25/18 06:20 Albumin/Globulin Ratio 1.2 (1.0-2.1) 09/25/18 06:20 Triglycerides 62 mg/DL (0-149) 09/24/18 06:32 Cholesterol 151 mg/dL (0-199) 09/24/18 06:32 LDL Cholesterol Direct 81 mg/dL (0-129) 09/24/18 06:32 HDL Cholesterol 53 MG/DL (30-70) 09/24/18 06:32 Lipase 33 U/L (23-300) 09/23/18 12:04 Free PSA 1.2 ng/mL 09/24/18 06:32 % Free PSA 15 % (calc) (>25) L 09/24/18 06:32 Total PSA 8.1 ng/mL (< or = 4.0) H 09/24/18 06:32 Thyroxine (T4) 7.53 ug/dl (5.5-11.0) 09/24/18 06:32 TSH 3rd Generation 0.94 mIU/ML (0.46-4.68) 09/24/18 06:32 Urine Color Yellow (YELLOW) 09/23/18 15:10 Urine Clarity Clear (Clear) 09/23/18 15:10 Urine pH 7.0 (5.0-8.0) 09/23/18 15:10 Ur Specific [place] 1.020 (1.003-1.030) 09/23/18 15:10 Urine Protein 100 mg/dL (NEGATIVE) 09/23/18 15:10 Urine Glucose (UA) Negative mg/dL (NEGATIVE) 09/23/18 15:10 Urine Ketones 15 mg/dL (NEGATIVE) 09/23/18 15:10 Urine Blood Trace-intact (NEGATIVE) 09/23/18 15:10 Urine Nitrate Negative (NEGATIVE) 09/23/18 15:10 Urine Bilirubin Small (NEGATIVE) 09/23/18 15:10 Urine Urobilinogen 0.2 mg/dL (0.2-1.0) 09/23/18 15:10 Ur Leukocyte Esterase Negative Dilan/uL (Negative) 09/23/18 15:10 Urine RBC (Auto) 4 /hpf (0-3) H 09/23/18 15:10 Urine Microscopic WBC 4 /hpf (0-5) 09/23/18 15:10 Ur Squamous Epith Cells < 1 /hpf (0-5) 09/23/18 15:10 Amorphous Sediment Occ /ul (<OCC) H 09/23/18 15:10 Urine Bacteria Rare (<OCC) 09/23/18 15:10 Stool Occult Blood Positive (NEGATIVE) H 09/23/18 08:47 C. difficile Ag & Toxin Negative (NEGATIVE) 09/26/18 09:36 Influenza Typ A,B ([facility]) Negative for flu a/b (NEGATIVE) 09/23/18 12:04 Blood Type A POSITIVE 09/23/18 13:10 Blood Type Confirm A POSITIVE 09/23/18 15:14 Antibody Screen Negative 09/23/18 13:10 BBK History Checked No verified bt 09/23/18 13:10 - Date & Time of H&P Date of H&P: 09/24/18 Time of H&P: 13:30 Discharge Exam - Head Exam Head Exam: NORMAL INSPECTION - Eye Exam Eye Exam: PERRL - ENT Exam ENT Exam: Normal Exam - Neck Exam Neck exam: Normal Inspection - Respiratory Exam Respiratory Exam: NORMAL BREATHING PATTERN - Cardiovascular Exam Cardiovascular Exam: REGULAR RHYTHM - GI/Abdominal Exam GI & Abdominal Exam: Normal Bowel Sounds, Soft. absent: Distended, Tenderness - Extremities Exam Extremities exam: normal inspection - Back Exam Back exam: NORMAL INSPECTION - Neurological Exam Neurological exam: Alert, Oriented x3 Additional comments: No focal motor sensory deficit. - Psychiatric Exam Psychiatric exam: Normal Mood - Skin Skin Exam: Normal Color, Warm Discharge Plan - Discharge Medications Prescriptions: Ciprofloxacin [Cipro] 500 mg PO BID #20 tab Metronidazole [Flagyl] 500 mg PO TID #30 tablet - Follow Up Plan Condition: FAIR Disposition: HOME/ ROUTINE Patient education suggested?: Yes Instructions: Acute Abdomen (Belly Pain), Adult (DC), Colitis (DC) Additional Instructions: hacer roger con doctor primario, urologo y gastroenterologo dentro de 1 semana Referrals: Zacarias Robles Jr., MD [Staff Provider] - Zacarias Wisdom MD, PhD [Staff Provider] - Milo Dowell MD [Family Provider] -
--- NOTE | 2018-10-05 14:54 | PQF ---
PROVIDER RESPONSE TEXT: UTI ruled in REVIEWER QUERY TEXT: Clarification of Clinical Diagnostic Findings Please clarify documentation or clinical relevance for the clinical / diagnostic findings or whether those are insignificant or unable to be further specified. The patient's Clinical Indicators include: pt. urine culture positive for Enterococcus Faecalis; pt. treated w/ Cipro 400mg. 200 mls./ IVPB on 09/27 Discharge medication included - CIPRO 500 mg. POBID. Please clarify if Dx. of UTI was ruled in or out. Query created by: Marleny Burrows on 09/28/2018 4:40 PM Electronically signed by: Milo Dowell MD 10/05/2018 2:51 PM
== END 2018-09-27 14:30 | disposition home or self-care (01) | DRG 392 ==
LOC: H.ER 11:11 → H.ERHOLD 18:28 → H.MEDSURG1 21:50
PROVIDERS: ADMIT Internal Medicine Pulmonary Disease; ATTEND Internal Medicine Pulmonary Disease
DX: K52.9 Noninfective gastroenteritis and colitis, unspecified (principal); N39.0 Urinary tract infection, site not specified; N28.1 Cyst of kidney, acquired; I25.10 Atherosclerotic heart disease of native coronary artery without angina pectoris; M54.16 Radiculopathy, lumbar region; N40.0 Benign prostatic hyperplasia without lower urinary tract symptoms; I10 Essential (primary) hypertension; J44.9 Chronic obstructive pulmonary disease, unspecified; Z91.041 Radiographic dye allergy status; Z88.6 Allergy status to analgesic agent; Z79.02 Long term (current) use of antithrombotics/antiplatelets